=== PATIENT | female | born 1950 | race Caucasian/White ===

== ENCOUNTER 2017-03-26 15:07 | Emergency (ER) | payer MEDICARE, OTHER ==
--- NOTE | 2017-04-01 10:31 | ER ---
ADMIT: 03/26/2017 RM/LOC: ER [facility] MR#: [id number] [address] [id number] MARLENE KNIGHT [address] [place] [address] Emergency Room Report SEX: F AGE: 67 : 1950 DATE: 03/26/2017 ADDENDUM: A 67-year-old white female coming in with many complaints. She does not feel right. She gets a little twinges in her chest, but she walked through [employer] today. She got no exertional chest pain whatsoever. She does have heart disease, but otherwise she is doing well. EKG, chest x-ray, and troponin, CBC, chemistries are all negative. We are going to discharge her out. Follow up Dr. Apple or return here if condition changes. CONDITION ON DISCHARGE: Good. Yaniv Castaneda MD/ jose francisco JOB #: [id number] CC: Yaniv Castaneda MD, Attending Physician Dane Apple DO, Family Physician
== END 2017-03-26 17:10 | disposition home or self-care (01) ==
LOC: ER 15:07
DX: R07.89 Other chest pain (principal); I25.10 Atherosclerotic heart disease of native coronary artery without angina pectoris; I11.9 Hypertensive heart disease without heart failure; E78.5 Hyperlipidemia, unspecified; Z90.710 Acquired absence of both cervix and uterus